=== PATIENT | female | born 1950 | race African-American/Black ===

== ENCOUNTER 2017-01-15 11:26 | Inpatient (IN) ==
[2017-01-15] MEDS ORDERED: ONDANSETRON 4 MG/2 ML VIAL IV PRN (12:22)
[2017-01-15] MEDS ORDERED: PROMETHAZINE 25 MG TABLET PO PRN (12:22)
[2017-01-15] MEDS ORDERED: BISACODYL 5 MG TABLET PO PRN (12:22)
[2017-01-15] MEDS ORDERED: LACTULOSE 20 GM/30 ML UDCUP PO PRN (12:22)
[2017-01-15] MEDS ORDERED: ZALEPLON 5 MG CAPSULE PO PRN (12:22)
[2017-01-15] MEDS ORDERED: ACETAMINOPHEN 325 MG TABLET PO PRN (12:22)
[2017-01-15] MEDS ORDERED: DOCUSATE SODIUM 100 MG CAPSULE PO PRN (12:22)
[2017-01-15] MEDS ORDERED: diphenhydrAMINE CAP 25 MG CAPSULE PO PRN (12:22)
[2017-01-15] MEDS ORDERED: EPOETIN ALFA 2,000 UNIT/1 ML VIAL IV PRN (12:28)
[2017-01-15] MEDS ORDERED: SODIUM CHLORIDE 0.9% 250 ML IV PRN (12:29)
--- NOTE | 2017-01-15 13:51 | Nephrology History & Physical ---
History of Present Illness Chief complaint: Increased BUN and creatinine History of present illness: Ms. Zamora is a 66 year old female who was seen in the outpatient setting for chronic kidney disease. The patient is a prison patient in the [place] she has had strokes in the past and is unable to ambulate or communicate very well. The patient occasionally grounds and mumble some. It is questionable how much she understands. The history is taken from her medical record and from her daughter. The patient's creatinine a few months ago was around 4 mg/dL lab done a week or so ago at the prison revealed a creatinine of greater than 6 mg/dL. The patient had been on a large dose of Lasix this was decreased a few months ago in light of her worsening kidney function however despite this change the patient's kidneys have progressively worsened and she is admitted at this time for dialysis initiation. Review of systems unable be obtained due to patient's medical condition PE: General: in no acute distress Eyes: Pupils are round and reactive, conjunctivae are clear ENT: Nose is clear, O/P is benign Neck: Supple, no thyromegaly Lymphatics: No cervical, supraclavicular or axillary adenopathy Heart: Regular rate and rhythm, 2+ lower extremity edema Lungs: Patient has some wheezing and rhonchi throughout her lung bases worse on the left, chest expansion symmetric Abdomen: Soft, normoactive bowel sounds, no hepatomegaly Musculoskeletal: No joint erythema or effusions or joint asymmetry Skin: Normal turgor, normal hydration, no rash Neuro/Psych: Alert and intermittently cooperative, she would open her mouth when prompted and raise her arm when prompted, she has no insight into her illness Allergies Allergy/AdvReac Type Severity Reaction Status Date / Time No Known Allergies Allergy Verified 01/15/17 12:49 Medical,Surgical,& Family Hx - Medical History Cardio: History of: CHF, Hypertension Neurology: History of: TIA HEENT: History of: HEENT Problems Endocrine: History of: Diabetes Mellitus (IDDM), Diabetes Mellitus (NIDDM) Renal: History of: Renal Failure, Renal Problems Gastrointestinal: History of: GI Problems (PEG) Musculoskeletal: History of: Musculoskeletal Problems - Family History Family History: Reports;: Family Diabetes - Social History Smoking Status: Unknown if ever smoked Frequency of Alcohol Use: None Type of Drug Use: None Assessment and Plan (1) End stage renal disease Status: Acute Assessment and plan: Patient has developed significantly increased creatinine greater than 6 mg/dL and also having problems with fluid retention, we will go ahead and start the patient on dialysis. I spoke to the patient's daughter about this and mentioned consideration towards not placing her mother on dialysis in light of her decreased mental capacity however she preferred to support the patient with dialysis at this time. Current Visit: Yes (2) Anemia Status: Acute Assessment and plan: We will start the patient on EPO on dialysis and check iron stores, will also transfuse her 2 units packed red blood cells on her first dialysis session Current Visit: Yes (3) Hypertension Status: Acute Current Visit: Yes (4) Diabetes mellitus Status: Acute Assessment and plan: We will monitor with a sliding scale of insulin Current Visit: Yes (5) Cerebrovascular disease Status: Acute Current Visit: Yes (6) Volume overload Status: Acute Assessment and plan: We will ultrafilter fluid off as tolerated by the patient Current Visit: Yes
[2017-01-15] MEDS ORDERED: GLUCAGON 1 MG VIAL IM PRN (13:53)
[2017-01-15 14:23] LABS: % Iron Saturation 6.5 % (18-50); Ferritin 137.9 ng/ml (8-252)
[2017-01-15] MEDS ORDERED: HEPARIN 1,000 UNIT/1 ML VIAL ONE (14:40)
--- NOTE | 2017-01-15 15:11 | General Surgery Consult Note ---
Assessment and Plan (1) End stage renal disease Status: Acute Assessment and plan: Impression: End-stage renal disease next Plan: Patient needs hemodialysis catheter placement to begin hemodialysis. She has an anemia and volume overload. Given her low hematocrit feel it is not reasonable to take her to the operating room for sedation. She cannot be given any blood because of the volume overload. I discussed my plans with the patient 's daughters who have power of sports attorney and they have agreed. The plan is for placement of a temporary catheter until she can be dialyzed and is more stable and then we can place a tunneled catheter. I discussed the procedure habits performed with the family. The risks of the procedure including bleeding, infection, damage to surrounding structures, need for further surgery were all discussed in detail and family agrees to proceed. Current Visit: Yes History of Present Illness Chief complaint: Needs dialysis catheter History of present illness: Ms. Zamora is a 66 year old female admitted with end-stage renal disease. Patient is volume overloaded and anemic and needs a hemodialysis catheter placed to begin hemodialysis. She has some dementia. Allergies Allergy/AdvReac Type Severity Reaction Status Date / Time No Known Allergies Allergy Verified 01/15/17 12:49 Medical,Surgical,& Family Hx - Medical History Cardio: History of: CHF, Hypertension Neurology: History of: TIA HEENT: History of: HEENT Problems Endocrine: History of: Diabetes Mellitus (IDDM), Diabetes Mellitus (NIDDM) Renal: History of: Renal Failure, Renal Problems Gastrointestinal: History of: GI Problems (PEG) Musculoskeletal: History of: Musculoskeletal Problems - Family History Family History: Reports;: Family Diabetes - Social History Smoking Status: Unknown if ever smoked Frequency of Alcohol Use: None Type of Drug Use: None Exam - Constitutional General appearance: mild distress - Cardiovascular Cardiovascular exam: Present: RRR Quality Measures - Stroke Symptom Onset Unknown: No Results - Labs Lab Results: I have reviewed the past 24 hour labs
[2017-01-15 15:12] LABS: Hepatitis A Ab IgM Quant 0.03 Index; Hepatitis A Ab IgM Result Negative (Negative); Hepatitis B Core IgM Quant 0.38 Index; Hepatitis B Core IgM Result Negative (Negative); Hepatitis B Surface Ag Quant < 0.10 Index; Hepatitis B Surface Ag Result Negative (Negative); Hepatitis C Virus Ab Quant 0.18 Index; Hepatitis C Virus Ab Result Negative (Negative)
--- NOTE | 2017-01-15 15:14 | Operative Note ---
Date of procedure: 01/15/17 Pre-op diagnosis: End-stage renal disease Post-op diagnosis: same Procedure: Procedure performed: #1 placement of right internal jugular non-tunneled hemodialysis catheter #2 ultrasound-guided venous access Procedure in detail: After informed consent was obtained the patient was placed in supine position in the right neck and chest were prepped and draped in usual sterile fashion. After procedural pause ultrasound was brought over through a sterile sleeve covering ultrasound the right neck revealed a patent and compressible right internal jugular vein. Local anesthetic infiltrated in the skin and subcutaneous tissue. The right internal jugular vein was then accessed using an 18-gauge Seldinger needle under ultrasound guidance on the first attempt. There is nonpulsatile dark red blood. Guidewire inserted without resistance. Small incision was made around the guidewire and the tract was dilated and a 16 cm catheter was placed over over the guidewire using Seldinger technique. Catheter withdrew and flushed easily and was locked with heparinized saline. It was secured in place with 2-0 silk suture. Dressings applied and the patient tolerated the procedure well. Chest x-ray pending. Anesthesia: local Surgeon / Physician: Jose Miller Estimated blood loss: other (Less than 10 cc) Specimens: none sent Condition: stable Disposition: PACU
--- NOTE | 2017-01-15 15:34 | XRay Report ---
Portable chest Date: 01/15/2017 Clinical history: Line placement Comparison: None Technique: Portable AP sitting chest Findings: The heart is minimally to moderately enlarged with calcification in the aortic knob. Diffuse parenchymal findings especially at the left lung base with small left pleural effusion. Insertion of right IJ double lumen venous dialysis catheter with tip in right atrium. No evidence of pneumothorax. Unremarkable mediastinum with degenerative changes. Impression: Satisfactory insertion of right IJ venous dialysis catheter with tip in right atrium. No pneumothorax. Cardiomegaly with mild CHF and small left pleural effusion. PROCEDURE INTERPRETED AT [facility] DEPARTMENT OF RADIOLOGY Final Report Signed by: Dr. Brittney Hanley
[2017-01-15] MEDS ORDERED: FUROSEMIDE 40 MG/4 ML VIAL IV SCH (16:00)
[2017-01-15] MEDS ORDERED: HEPARIN 10,000 UNIT/10 ML VIAL IV SCH (16:30)
[2017-01-15] MEDS ORDERED: EPOETIN ALFA 10,000 UNIT/1 ML VIAL IV SCH (16:30)
[2017-01-15] MEDS: INSULIN REGULAR 100 UNIT/ML SUBCUT SCH ×2 (18:19→20:06)
[2017-01-16] MEDS: DEXTROSE 50% 25 GM/50 ML VIAL IV PRN (02:56)
[2017-01-16] MEDS ORDERED: DEXTROSE 50% 25 GM/50 ML VIAL IV ONE (03:36)
[2017-01-16] MEDS: DEXTROSE 5% NACL 0.45% 1,000 ML IV SCH (03:56)
[2017-01-16 04:08] LABS: Basophils % 0.1 % (0.0-0.8); Eosinophils % 0.5 % (0.00-10.9); Hematocrit 22.4 VOL% (35.7-47.0); Hemoglobin 7.5 GM/DL (12.0-16.0); Immature Granulocytes % 0.6 %; Immature Granulocytes Absolute 0.05 #; Lymphocytes # 1.3 10*3/uL (1.4-4.0); Lymphocytes % 14.9 % (21.3-54.2); Mean Corpuscular HGB Conc 33.5 GM/DL (32-36); Mean Corpuscular Hemoglobin 26 PG (27-34); Mean Corpuscular Volume 78.3 FL (87-102); Mean Platelet Volume 11.7 FL (9.6-12.0); Monocytes # 0.6 10*3/uL (0.11-0.8); NRBC # 0.03 10*3/uL; Neutrophils # 6.6 10*3/uL (1.4-7.4); Neutrophils % 76.9 % (38.7-73.9); Platelet Count 208 T/CUMM (130-400); Red Blood Count 2.86 MC/CUMM (3.8-5.5); Red Cell Distribution Width 18.6 % (9.3-17.3); White Blood Count 8.5 T/CUMM (4-12)
[2017-01-16 04:29] LABS: Calcium 7.3 MG/DL (8.5-10.1); Osmolality,Calculated 292.4 MOS/KG (273-304); Potassium 4.3 MMOL/L (3.5-5.1)
--- NOTE | 2017-01-16 07:31 | Nephrology Progress Note ---
Nephrology - PN: Subj Interval history: Patient is more awake and interactive this morning she did say hello and answer some questions appropriately in a one-word fashion. Physical exam general the patient is chronically ill-appearing, heart is regular rate and rhythm, she has 2+ lower extremity edema into her thighs, lungs reveal some wheezes throughout, abdomen is soft with positive bowel sounds Assessment/plan 1. End-stage renal disease-we will plan on hemodialysis today 2. Anemia-patient's hematocrits 22% this is increased appropriately with a transfusion of 1 unit of packed red blood cells, plan is to give her another unit of PRBCs on dialysis today 3. Diabetes mellitus 4. Volume overload-this patient continues to have some pulmonary wheezes, will plan on removing 3 L or more today on dialysis as tolerated Exam (PN)-Nephrology - Vital Signs Vital signs: Period Temp Pulse Resp BP Sys/Chung Pulse Ox Last 24 Hr 97.4 F-98.5 F 66-68 16-20 132-210/71-110 93-97 - Lab 01/16/17 03:55 01/16/17 03:55 Most recent lab results Calcium 7.3 MG/DL (8.5-10.1) L 01/16/17 03:55 Assessment and Plan (1) End stage renal disease Status: Acute Assessment and plan: Patient has developed significantly increased creatinine greater than 6 mg/dL and also having problems with fluid retention, we will go ahead and start the patient on dialysis. I spoke to the patient's daughter about this and mentioned consideration towards not placing her mother on dialysis in light of her decreased mental capacity however she preferred to support the patient with dialysis at this time. Current Visit: Yes (2) Anemia Status: Acute Assessment and plan: We will start the patient on EPO on dialysis and check iron stores, will also transfuse her 2 units packed red blood cells on her first dialysis session Current Visit: Yes (3) Hypertension Status: Acute Current Visit: Yes (4) Diabetes mellitus Status: Acute Assessment and plan: We will monitor with a sliding scale of insulin Current Visit: Yes (5) Cerebrovascular disease Status: Acute Current Visit: Yes (6) Volume overload Status: Acute Assessment and plan: We will ultrafilter fluid off as tolerated by the patient Current Visit: Yes
[2017-01-16] MEDS: PANTOPRAZOLE 40 MG TABLET PO SCH (09:00)
[2017-01-16] MEDS: INSULIN REGULAR 100 UNIT/ML SUBCUT SCH ×4 (09:00→22:44)
[2017-01-16] MEDS: cloNIDine 0.1 MG TABLET PO PRN (11:48)
[2017-01-16] MEDS ORDERED: ALBUTEROL/IPRATROPIUM 3 ML NEB RESP TX PRN (14:29)
[2017-01-16] MEDS ORDERED: ACETAMINOPHEN 325 MG TABLET PO PRN (14:32)
[2017-01-16] MEDS ORDERED: clonazePAM 0.5 MG TABLET PO PRN (14:37)
[2017-01-16] MEDS: ISOSORBIDE DINITRATE 20 MG TABLET PO SCH (15:24)
[2017-01-16] MEDS: hydrALAZINE 25 MG TABLET PO SCH (15:24)
[2017-01-16] MEDS: CARVEDILOL 3.125 MG TABLET PO SCH (15:25)
[2017-01-17] MEDS: FERROUS SULFATE 300 MG/5 ML UDCUP PO SCH ×2 (00:50→08:27)
[2017-01-17] MEDS: SERTRALINE 50 MG TABLET PO SCH (00:50)
[2017-01-17] MEDS: hydrALAZINE 25 MG TABLET PO SCH ×3 (00:50→15:37)
[2017-01-17] MEDS: CARVEDILOL 3.125 MG TABLET PO SCH ×2 (00:50→08:27)
[2017-01-17] MEDS: INSULIN GLARGINE 100 UNIT/ML SUBCUT SCH (00:51)
[2017-01-17] MEDS: guaiFENesin/DM ER 600-30 MG TABLET PO PRN (00:51)
[2017-01-17] MEDS: ISOSORBIDE DINITRATE 20 MG TABLET PO SCH ×3 (00:51→15:37)
[2017-01-17] MEDS: DEXTROSE 5% NACL 0.45% 1,000 ML IV SCH (06:25)
[2017-01-17 08:07] LABS: Calcium 7.4 MG/DL (8.5-10.1); Magnesium 3.2 MG/DL (1.8-2.4); Osmolality,Calculated 285.1 MOS/KG (273-304); Phosphorous 2.6 MG/DL (2.5-4.9); Potassium 4.2 MMOL/L (3.5-5.1); Prealbumin 16.9 MG/DL (20-40)
[2017-01-17] MEDS: INSULIN REGULAR 100 UNIT/ML SUBCUT SCH ×3 (08:27→18:13)
[2017-01-17] MEDS: ONDANSETRON 4 MG TABLET PO SCH (08:27)
[2017-01-17] MEDS: PANTOPRAZOLE 40 MG TABLET PO SCH (08:27)
--- NOTE | 2017-01-17 08:46 | Nephrology Progress Note ---
Nephrology - PN: Subj Interval history: This patient is awake and alert today, she did say hello but would not expand much on questions after that. Review of systems GI-the nurse reports the patient had 2 large bowel movements which were very dark in color. Physical exam general the patient is chronically ill-appearing, she has 2+ pretibial edema, she still has some crackles worse on the right than the left, neuro-the patient is awake and alert she said hello, today she is repeatedly tapping herself on her head, this is not unusual behavior for the patient she has done this in the past when I seen her on previous hospitalizations. Assessment/plan 1. End-stage renal disease-we will continue hemodialysis support 2. Anemia-with the patient's presentation hematocrit of 22% and history of black stools, and asked GI to see her in consultation 3. Diabetes mellitus 4. Volume overload-I am going to dialyze the patient today and will also dialyze her tomorrow for further fluid removal. Exam (PN)-Nephrology - Vital Signs Vital signs: Period Temp Pulse Resp BP Sys/Chung Pulse Ox Last 24 Hr 97.8 F-98.3 F 67-69 18-20 151-167/70-86 96-99 - Lab 01/16/17 03:55 01/17/17 06:00 Most recent lab results Calcium 7.4 MG/DL (8.5-10.1) L 01/17/17 06:00 Phosphorus 2.6 MG/DL (2.5-4.9) 01/17/17 06:00 Magnesium 3.2 MG/DL (1.8-2.4) H 01/17/17 06:00 Assessment and Plan (1) End stage renal disease Status: Acute Assessment and plan: Patient has developed significantly increased creatinine greater than 6 mg/dL and also having problems with fluid retention, we will go ahead and start the patient on dialysis. I spoke to the patient's daughter about this and mentioned consideration towards not placing her mother on dialysis in light of her decreased mental capacity however she preferred to support the patient with dialysis at this time. Current Visit: Yes (2) Anemia Status: Acute Assessment and plan: We will start the patient on EPO on dialysis and check iron stores, will also transfuse her 2 units packed red blood cells on her first dialysis session Current Visit: Yes (3) Hypertension Status: Acute Current Visit: Yes (4) Diabetes mellitus Status: Acute Assessment and plan: We will monitor with a sliding scale of insulin Current Visit: Yes (5) Cerebrovascular disease Status: Acute Current Visit: Yes (6) Volume overload Status: Acute Assessment and plan: We will ultrafilter fluid off as tolerated by the patient Current Visit: Yes
[2017-01-17 10:05] LABS: Basophils % 0.1 % (0.0-0.8); Eosinophils % 0.4 % (0.00-10.9); Hematocrit 25.7 VOL% (35.7-47.0); Hemoglobin 8.7 GM/DL (12.0-16.0); Immature Granulocytes % 0.5 %; Immature Granulocytes Absolute 0.05 #; Lymphocytes # 1.4 10*3/uL (1.4-4.0); Mean Corpuscular HGB Conc 33.9 GM/DL (32-36); Mean Corpuscular Hemoglobin 27 PG (27-34); Mean Corpuscular Volume 79.6 FL (87-102); Mean Platelet Volume 10.9 FL (9.6-12.0); Monocytes # 0.6 10*3/uL (0.11-0.8); Monocytes % 6.5 % (1.7-12.7); NRBC # 0.02 10*3/uL; Neutrophils # 7.3 10*3/uL (1.4-7.4); Neutrophils % 77.5 % (38.7-73.9); Platelet Count 153 T/CUMM (130-400); Red Blood Count 3.23 MC/CUMM (3.8-5.5); White Blood Count 9.4 T/CUMM (4-12)
--- NOTE | 2017-01-17 10:57 | Gastrointestinal Consult Note ---
<Kaia Mcdermott Geeta - Last Filed: 01/17/17 10:53> Assessment and Plan (1) Anemia Status: Acute Assessment and plan: 01/17-admitting hemoglobin at 7.5 with reports of melena stools. Has received 2 units packed red blood cells with hemoglobin of 8.7. Uncertain as to prior history of GI bleeding. Obtain stools for occult blood. Uncertain as to prior endoscopy. Plan an addendum to follow by Dr. Gracia. Current Visit: Yes History of Present Illness Chief complaint: Melena History of present illness: Ms. Zamora is a 66 year old female who was admitted to the hospital after findings of increased BUN and creatinine in the outpatient setting. Patient resides in a [facility] and has a history of CVA in the past with inability to communicate very well verbally. She also has a prior history of CHF, hypertension, diabetes mellitus. Patient was found several months ago to have creatinine of 4 however as recent her creatinine has increased to 6 mg/dl. she is followed by Dr. Agustin and at this time was felt that her kidney disease is progressing and she has now had dialysis initiated after having hemodialysis catheter placed 2 days ago. Patient was noted on today to have 2 large bowel movements which were noted to be very dark in color. On yesterday, her hemoglobin was noted to be 7.5. She has been transfused 2 units of packed red blood cells and hemoglobin is now up to 8.7 at this time. Iron studies have been done with a noted iron of 18, TIBC 275, saturation 6.5, and ferritin 137.9. She is noted to not take any anticoagulants prior to admission however she is noted to be on oral iron supplements. She is also noted to take Nexium. Stool for occult bloods are still pending at this time. Patient is unable to answer questions other than with a simple yes or head nod therefore uncertain as to the validity of her answers. She does not complain of nausea or vomiting. She states she does have abdominal pain however no tenderness found on exam. Patient is noted to have PEG tube however uncertain as to prior endoscopy are any details regarding placement of this. Home Medications Medication Instructions Recorded Confirmed Type Acetaminophen Tab [Tylenol Tab] 1,000 mg PO Q4H PRN 01/16/17 01/16/17 History Albuterol/Ipratropium Neb [Duoneb] 3 ml RESP TX RT Q4H PRN 05/10/17 05/10/17 History Atorvastatin [Lipitor] 10 mg PO BEDTIME 01/16/17 01/16/17 History Carvedilol [Coreg] 3.125 mg PO BID 01/16/17 01/16/17 History Esomeprazole Magnesium [Nexium] 40 mg PO DAILY 01/16/17 01/16/17 History Ferrous Sulfate 220 mg PO BID 01/16/17 01/16/17 History Furosemide Tab [Lasix Tab] 20 mg PO DAILY 01/16/17 01/16/17 History Insulin Glargine [Lantus] 10 unit SUBCUT BEDTIME 01/16/17 01/16/17 History Isosorbide Dinitrate 20 mg PO TID 01/16/17 01/16/17 History Ondansetron Tab [Zofran Tab] 4 mg PO DAILY 01/16/17 01/16/17 History Sertraline [Zoloft] 50 mg PO BEDTIME 01/16/17 01/16/17 History clonazePAM TAB [KlonoPIN] 0.5 mg PO Q8H PRN 01/16/17 01/16/17 History hydrALAZINE TAB [Apresoline Tab] 25 mg PO TID 01/16/17 01/16/17 History Allergies Allergy/AdvReac Type Severity Reaction Status Date / Time No Known Allergies Allergy Verified 01/15/17 12:49 Medical,Surgical,& Family Hx - Medical History Cardio: History of: CHF, Hypertension Neurology: History of: TIA HEENT: History of: HEENT Problems Endocrine: History of: Diabetes Mellitus (IDDM), Diabetes Mellitus (NIDDM) Renal: History of: Renal Failure, Renal Problems Gastrointestinal: History of: GI Problems (PEG) Musculoskeletal: History of: Musculoskeletal Problems - Family History Family History: Reports;: Family Diabetes - Social History Smoking Status: Unknown if ever smoked Frequency of Alcohol Use: None Type of Drug Use: None ROS unobtainable: due to mental status Exam - Constitutional Vitals: Period Temp Pulse Resp BP Sys/Chung Pulse Ox Last 24 Hr 97.8 F-98.3 F 67-69 18-20 151-174/70-86 96-99 General appearance: normal weight, no acute distress - Head Head exam: Present: normal inspection, normocephalic - Eye Eye exam: Present: other (Lids and conjunctive are unremarkable). Absent: scleral icterus - ENT ENT exam: Present: normal exam, normal oropharynx - Neck Neck exam: Present: normal inspection - Respiratory Respiratory exam: Present: clear to auscultation bilaterally. Absent: rales, rhonchi, wheezes - Cardiovascular Cardiovascular exam: Present: regular rate and rhythm. Absent: diastolic murmur , JVD, systolic murmur - GI/Abdominal GI/Abdominal exam: Present: normal bowel sounds, soft. Absent: ascites, distended, mass, organomegaly, tenderness - Extremities Exam Extremities exam: Present: normal inspection, full ROM - Back Exam Back exam: Present: normal inspection - Neurological Exam Neurological exam: Present: alert, altered - Psychiatric Psychiatric exam: Present: flat affect - Skin Skin exam: Present: normal color, warm, dry Results - Labs CBC & BMP: 01/17/17 10:00 01/17/17 06:00 Lab Results: I have reviewed the past 24 hour labs Quality Measures - Stroke Symptom Onset Unknown: No <Edgar Gracia - Last Filed: 01/17/17 11:32> History of Present Illness Chief complaint: 3030 History of present illness: Ms. Zamora is a 66 year old female Exam - Constitutional Vitals: Period Temp Pulse Resp BP Sys/Chung Pulse Ox Last 24 Hr 97.8 F-98.3 F 67-69 18-20 151-174/70-86 96-99 Results - Labs CBC & BMP: 01/17/17 10:00 01/17/17 06:00
--- NOTE | 2017-01-17 12:28 | Event Note ---
Patient seen in the dialysis unit. She continues to have visually had her head. She nods yes when asked if his itching. Otherwise she appears to be in no apparent pain or her discomfort. Central line with appropriate dressing and is currently being used for dialysis. No evidence of infection surrounding her active bleeding. Right upper extremities without edema. Assessment and plan: The patient is planned to continue dialysis. To decrease risk of line infection, recommend transitioning to a tunneled hemodialysis catheter as soon as can safely be performed. H&H are improved after transfusion at 8.7/25.7. He has was discussed with Dr. Agustin. At this time we will plan to remove the central line tomorrow and place a tunneled hemodialysis catheter pending no decompensation overnight. This plan was discussed with the family when the initial central line was placed, but no family is at bedside right now the patient is in the dialysis unit.
--- NOTE | 2017-01-17 18:57 | EKG Report ---
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
[2017-01-18] MEDS: INSULIN GLARGINE 100 UNIT/ML SUBCUT SCH ×2 (00:55→21:19)
[2017-01-18] MEDS: INSULIN REGULAR 100 UNIT/ML SUBCUT SCH ×5 (00:56→21:18)
[2017-01-18] MEDS: FERROUS SULFATE 300 MG/5 ML UDCUP PO SCH ×3 (01:17→20:33)
[2017-01-18] MEDS: guaiFENesin/DM ER 600-30 MG TABLET PO PRN (01:20)
[2017-01-18] MEDS: cloNIDine 0.1 MG TABLET PO PRN (01:20)
[2017-01-18] MEDS: ISOSORBIDE DINITRATE 20 MG TABLET PO SCH ×4 (01:20→20:34)
[2017-01-18] MEDS: CARVEDILOL 3.125 MG TABLET PO SCH ×3 (01:20→20:40)
[2017-01-18] MEDS: hydrALAZINE 25 MG TABLET PO SCH ×4 (01:26→20:40)
[2017-01-18] MEDS: SERTRALINE 50 MG TABLET PO SCH ×2 (01:28→20:40)
[2017-01-18] MEDS: DEXTROSE 5% NACL 0.45% 1,000 ML IV SCH (05:17)
[2017-01-18 07:28] LABS: Basophils % 0.2 % (0.0-0.8); Eosinophils # 0.1 10*3/uL (0.0-0.87); Eosinophils % 0.9 % (0.00-10.9); Hematocrit 26.9 VOL% (35.7-47.0); Hemoglobin 8.7 GM/DL (12.0-16.0); Immature Granulocytes % 0.3 %; Immature Granulocytes Absolute 0.03 #; Lymphocytes # 2.2 10*3/uL (1.4-4.0); Lymphocytes % 24.9 % (21.3-54.2); Mean Corpuscular HGB Conc 32.3 GM/DL (32-36); Mean Corpuscular Hemoglobin 26 PG (27-34); Mean Corpuscular Volume 80.5 FL (87-102); Mean Platelet Volume 11.9 FL (9.6-12.0); Monocytes # 0.8 10*3/uL (0.11-0.8); Monocytes % 9.3 % (1.7-12.7); NRBC # 0.03 10*3/uL; Neutrophils # 5.8 10*3/uL (1.4-7.4); Neutrophils % 64.4 % (38.7-73.9); Platelet Count 176 T/CUMM (130-400); Red Blood Count 3.34 MC/CUMM (3.8-5.5); Red Cell Distribution Width 18.4 % (9.3-17.3)
[2017-01-18] MEDS: SODIUM CHLORIDE 0.9% 250 ML IV SCH ×2 (07:36→20:39)
[2017-01-18] MEDS ORDERED: LIDOCAINE 1% 5 ML VIAL ONE (07:40)
[2017-01-18] MEDS ORDERED: PROPOFOL 200 MG/20 ML VIAL IV ONE (07:40)
[2017-01-18] MEDS ORDERED: hydrALAZINE 20 MG/1 ML VIAL ONE (07:40)
--- NOTE | 2017-01-18 08:20 | Operative Note ---
Date of procedure: 01/18/17 Pre-op diagnosis: End-stage renal disease Post-op diagnosis: same Procedure: Procedure performed: #1 placement of right internal jugular tunneled hemodialysis catheter #2 removal of right internal jugular non-tunneled hemodialysis catheter Procedure in detail: After informed consent was obtained, patient was taken operating suite and laid supine on the operating table. After monitored anesthesia was initiated bilateral neck and chest were prepped and draped in usual sterile fashion including the existing non-tunneled catheter. After procedural pause local anesthetic infiltrated in the skin and subcutaneous tissue around the catheter exit site and along the right chest wall. Small incision was made in the right chest wall and adjacent the existing catheter and a new 23 cm cuffed hemodialysis catheter was tunneled from the chest wall incision up to the base the right neck. Next a Glidewire was inserted through the existing catheter and fluoroscopy demonstrated a guidewire to be exiting the distal tip of the catheter and going down into the inferior vena cava. The non-tunneled catheter was then removed leaving the Glidewire in place. Dilator and sheath were placed over the Glidewire and advanced under fluoroscopic guidance without any significant resistance using Seldinger technique. The dilator and Glidewire were removed leaving the sheath in place. The catheter inserted through the sheath and sheath peeled away leaving the catheter tip near the junction of the right atrium and SVC. The catheter withdrew and flushed easily and was locked with heparinized saline. It was secured in place with 2-0 nylon suture. Incisions closed with 2-0 nylon suture. Sterile dressings applied. Patient was taken to recovery room in stable condition. All lap and needle counts correct at the end of the case Anesthesia: MAC, local Surgeon / Physician: Jose Miller Estimated blood loss: other (Less than 10 cc) Specimens: none sent Condition: stable Disposition: PACU Results - Labs CBC & BMP: 01/18/17 06:17 01/17/17 06:00 Discharge Plan - Discharge Medications No Action Carvedilol [Coreg] 3.125 mg PO BID clonazePAM TAB [KlonoPIN] 0.5 mg PO Q8H PRN PRN Reason: Anxiety Acetaminophen Tab [Tylenol Tab] 1,000 mg PO Q4H PRN PRN Reason: Pain Esomeprazole Magnesium [Nexium] 40 mg PO DAILY Ferrous Sulfate 220 mg PO BID Isosorbide Dinitrate 20 mg PO TID Sertraline [Zoloft] 50 mg PO BEDTIME Atorvastatin [Lipitor] 10 mg PO BEDTIME Insulin Glargine [Lantus] 10 unit SUBCUT BEDTIME Furosemide Tab [Lasix Tab] 20 mg PO DAILY Albuterol/Ipratropium Neb [Duoneb] 3 ml RESP TX RT Q4H PRN PRN Reason: Shortness Of Breath hydrALAZINE TAB [Apresoline Tab] 25 mg PO TID Ondansetron Tab [Zofran Tab] 4 mg PO DAILY - Follow Up or Referral - Forms/Instructions
[2017-01-18 08:27] LABS: Calcium 7.6 MG/DL (8.5-10.1); Potassium 3.6 MMOL/L (3.5-5.1)
[2017-01-18] MEDS: PANTOPRAZOLE 40 MG TABLET PO SCH (08:56)
[2017-01-18] MEDS: ONDANSETRON 4 MG TABLET PO SCH (08:56)
--- NOTE | 2017-01-18 08:58 | Interventional Radiology Rpt ---
Exam: IR fluoro guide cv cath Date: 01/18/2017 12:00 AM Comparison: None Indication: Dialysis catheter placement Technique:[Fluoroscopy time of 26 seconds documented. 2 films submitted for review.] Findings: Satisfactory insertion of right IJ dialysis catheter with tips at junction of SVC and right atrium. Impression: Satisfactory insertion of right IJ venous dialysis catheter. PROCEDURE INTERPRETED AT [facility] DEPARTMENT OF RADIOLOGY Final Report Signed by: Dr. Brittney Hanley
--- NOTE | 2017-01-18 09:39 | XRay Report ---
Portable chest Date: 01/18/2017 Clinical history: Dialysis catheter placement Comparison: 01/15/2017 Technique: Portable AP sitting chest Findings: Stable cardiomegaly with calcification in the aortic knob. Removal of the previously noted right IJ venous dialysis catheter. New right IJV dialysis catheter inserted with tips at junction of SVC and right atrium. No pneumothorax. Persistent diffuse parenchymal findings especially at the lung bases with small left pleural effusion. Stable mediastinum and osseous structures. Impression: Satisfactory exchange of right IJ venous dialysis catheter with no pneumothorax. Persistent cardiomegaly with mild CHF and small left pleural effusion. PROCEDURE INTERPRETED AT [facility] DEPARTMENT OF RADIOLOGY Final Report Signed by: Dr. Brittney Hanley
--- NOTE | 2017-01-18 11:03 | Nephrology Progress Note ---
Nephrology - PN: Subj Interval history: Patient is awake and coherent and responding in a one-word fashion appropriately to interaction. Physical exam general the patient's in no acute distress, heart is regular rate and rhythm, she has 2+ pretibial edema, lungs reveal some wheezes and crackles throughout but improved from presentation, abdomen is soft with positive bowel sounds Assessment/plan 1. End-stage renal disease-new start on hemodialysis will plan on dialyzing the patient today for volume, her next dialysis will be Saturday. 2. Anemia-patient presented with hematocrit of 22% she reportedly had some very dark stools we have asked GI to see her in consultation and it sounds like they may do an EGD at some point. I am going to recheck a hematocrit on hemodialysis for stability. 3. Dementia 4. Diabetes mellitus is controlled 5. Volume overload-we will continue to vigorously ultrafilter the patient on hemodialysis. Exam (PN)-Nephrology - Vital Signs Vital signs: Period Temp Pulse Resp BP Sys/Chung Pulse Ox Last 24 Hr 97 F-991 F 57-72 16-18 142-161/65-86 93-100 - Lab 01/18/17 06:17 01/18/17 06:17 Most recent lab results Calcium 7.6 MG/DL (8.5-10.1) L 01/18/17 06:17 Phosphorus 2.6 MG/DL (2.5-4.9) 01/17/17 06:00 Magnesium 3.2 MG/DL (1.8-2.4) H 01/17/17 06:00 Assessment and Plan (1) End stage renal disease Status: Acute Assessment and plan: Patient has developed significantly increased creatinine greater than 6 mg/dL and also having problems with fluid retention, we will go ahead and start the patient on dialysis. I spoke to the patient's daughter about this and mentioned consideration towards not placing her mother on dialysis in light of her decreased mental capacity however she preferred to support the patient with dialysis at this time. Current Visit: Yes (2) Anemia Status: Acute Assessment and plan: We will start the patient on EPO on dialysis and check iron stores, will also transfuse her 2 units packed red blood cells on her first dialysis session Current Visit: Yes (3) Hypertension Status: Acute Current Visit: Yes (4) Diabetes mellitus Status: Acute Assessment and plan: We will monitor with a sliding scale of insulin Current Visit: Yes (5) Cerebrovascular disease Status: Acute Current Visit: Yes (6) Volume overload Status: Acute Assessment and plan: We will ultrafilter fluid off as tolerated by the patient Current Visit: Yes
--- NOTE | 2017-01-18 11:24 | Dialysis Note ---
Dialysis Note - Dialysis Note .: Is seen during her first hemodialysis. She is tolerating the initial dialysis fairly well. She is awake but not communicative. Her right neck catheter exits the right chest and the dressings are dry. Flow by way of the catheter is excellent.
--- NOTE | 2017-01-18 11:40 | Gastrointestinal Progress Note ---
<YoeliceoKaia Geeta - Last Filed: 01/18/17 11:38> Assessment and Plan (1) Anemia Status: Acute Assessment and plan: 01/18-hemoglobin stable at 8.7. No reports of overt bleeding. EGD postponed due to dialysis catheter placement. Monitor hemoglobin and will consider EGD if necessary on Saturday if patient remains stable unless overt bleeding or patient begins to drop her hemoglobin over the weekend. Plan an addendum to follow by Dr. Gracia. 01/17-admitting hemoglobin at 7.5 with reports of melena stools. Has received 2 units packed red blood cells with hemoglobin of 8.7. Uncertain as to prior history of GI bleeding. Obtain stools for occult blood. Uncertain as to prior endoscopy. Plan an addendum to follow by Dr. Gracia. Current Visit: Yes Gastroenterology - PN: Subj Interval history: CC: Melena, anemia Patient is seen following dialysis catheter placement this morning. She does not open her eyes at this time to verbal stimuli. She is for dialysis later this morning. Abdomen is soft, nontender. There are no reports of overt bleeding at this time. Hemoglobin is holding at 8.7 at present. EGD postponed today due to dialysis catheter placement. We will continue to monitor hemoglobin and signs of overt bleeding over the weekend and proceed with EGD if necessary on Saturday if patient remains stable. ROS: Denies shortness of breath or chest pain Exam (Progress Note) - Constitutional Vitals: Period Temp Pulse Resp BP Sys/Chung Pulse Ox Last 24 Hr 97 F-991 F 57-72 16-18 142-161/65-86 93-100 General appearance: normal weight, no acute distress - Head Head exam: Present: normal inspection, normocephalic - Eye Eye exam: Present: other (Lids and conjunctive are unremarkable). Absent: scleral icterus - ENT ENT exam: Present: normal exam, normal oropharynx - Neck Neck exam: Present: normal inspection - Respiratory Respiratory exam: Present: clear to auscultation bilaterally. Absent: rales, rhonchi, wheezes - Cardiovascular Cardiovascular exam: Present: regular rate and rhythm. Absent: diastolic murmur , JVD, systolic murmur - GI/Abdominal GI/Abdominal exam: Present: normal bowel sounds, soft. Absent: ascites, distended, mass, organomegaly, tenderness - Extremities Exam Extremities exam: Present: normal inspection - Back Exam Back exam: Present: normal inspection - Neurological Exam Neurological exam: Present: altered - Psychiatric Psychiatric exam: Present: other - Skin Skin exam: Present: normal color, warm, dry Results - Labs CBC & BMP: 01/18/17 06:17 01/18/17 06:17 Lab Results: I have reviewed the past 24 hour labs <Edgar Gracia - Last Filed: 01/18/17 14:03> Exam (Progress Note) - Constitutional Vitals: Period Temp Pulse Resp BP Sys/Chung Pulse Ox Last 24 Hr 97 F-991 F 57-72 16-18 142-161/65-86 93-100 Results - Labs CBC & BMP: 01/18/17 06:17 01/18/17 06:17
--- NOTE | 2017-01-18 12:05 | Anesthesia Post-Op ---
Anesthesia Post OP - Post Ansesthetic Evaluation Patient seen in post op: Yes Resp: within normal limits CV: within normal limits Mental: within normal limits Temp: within normal limits Gdnr-[id number]: within normal limits Nausea and Vomiting: within normal limits Pain: within normal limits
[2017-01-18] MEDS: DEXTROSE 50% 25 GM/50 ML VIAL IV PRN (18:46)
[2017-01-19] MEDS: DEXTROSE 5% NACL 0.45% 1,000 ML IV SCH (02:33)
[2017-01-19] MEDS: ONDANSETRON 4 MG TABLET PO SCH (08:10)
[2017-01-19] MEDS: ISOSORBIDE DINITRATE 20 MG TABLET PO SCH ×3 (08:10→20:13)
[2017-01-19] MEDS: hydrALAZINE 25 MG TABLET PO SCH ×3 (08:10→20:13)
[2017-01-19] MEDS: FERROUS SULFATE 300 MG/5 ML UDCUP PO SCH ×2 (08:10→20:13)
[2017-01-19] MEDS: CARVEDILOL 3.125 MG TABLET PO SCH ×2 (08:10→20:13)
[2017-01-19] MEDS: PANTOPRAZOLE 40 MG TABLET PO SCH (08:11)
[2017-01-19 08:36] LABS: Basophils % 0.2 % (0.0-0.8); Eosinophils # 0.1 10*3/uL (0.0-0.87); Eosinophils % 1.2 % (0.00-10.9); Hematocrit 31.7 VOL% (35.7-47.0); Hemoglobin 10.1 GM/DL (12.0-16.0); Immature Granulocytes % 0.3 %; Immature Granulocytes Absolute 0.03 #; Lymphocytes # 1.5 10*3/uL (1.4-4.0); Lymphocytes % 15.7 % (21.3-54.2); Mean Corpuscular HGB Conc 31.9 GM/DL (32-36); Mean Corpuscular Hemoglobin 26 PG (27-34); Mean Corpuscular Volume 82.8 FL (87-102); Mean Platelet Volume 11.1 FL (9.6-12.0); Monocytes # 0.7 10*3/uL (0.11-0.8); Monocytes % 7.7 % (1.7-12.7); NRBC # 0.13 10*3/uL; Neutrophils # 7.1 10*3/uL (1.4-7.4); Neutrophils % 74.9 % (38.7-73.9); Platelet Count 173 T/CUMM (130-400); Red Blood Count 3.83 MC/CUMM (3.8-5.5); Red Cell Distribution Width 18.5 % (9.3-17.3); White Blood Count 9.4 T/CUMM (4-12)
[2017-01-19] MEDS: INSULIN REGULAR 100 UNIT/ML SUBCUT SCH ×4 (08:58→20:13)
[2017-01-19] MEDS: SODIUM CHLORIDE 0.9% 250 ML IV SCH ×2 (10:03→21:11)
--- NOTE | 2017-01-19 17:41 | Nephrology Progress Note ---
Nephrology - PN: Subj Interval history: The patient is resting comfortably no acute changes. Tolerated dialysis on yesterday. Exam (PN)-Nephrology - Vital Signs Vital signs: Period Temp Pulse Resp BP Sys/Chung Pulse Ox Last 24 Hr 97.1 F-99.0 F 66-74 15-20 135-156/56-74 95-100 - General Appearance General appearance: well-developed Neck: supple Respiratory: clear Cardiology: regular rate, regular rhythm Gastrointestinal: normoactive bowel sounds, no tenderness Neurologic: alert and oriented x3 Musculoskeletal: no clubbing Psychiatric: mood/affect appropriate - Lab 01/19/17 08:26 01/18/17 06:17 Most recent lab results Calcium 7.6 MG/DL (8.5-10.1) L 01/18/17 06:17 Phosphorus 2.6 MG/DL (2.5-4.9) 01/17/17 06:00 Magnesium 3.2 MG/DL (1.8-2.4) H 01/17/17 06:00 Assessment and Plan (1) End stage renal disease Status: Chronic Current Visit: Yes (2) Anemia Status: Chronic Current Visit: Yes (3) Hypertension Status: Chronic Current Visit: Yes Qualifiers: Hypertension type: essential hypertension Qualified Code(s): I10 - Essential (primary) hypertension (4) Diabetes mellitus Status: Chronic Current Visit: Yes Qualifiers: Diabetes mellitus type: other specified (including LUCIO) Chronic kidney disease stage: on chronic dialysis
[2017-01-19] MEDS: INSULIN GLARGINE 100 UNIT/ML SUBCUT SCH (20:12)
[2017-01-19] MEDS: SERTRALINE 50 MG TABLET PO SCH (20:14)
[2017-01-20] MEDS: DEXTROSE 5% NACL 0.45% 1,000 ML IV SCH (02:53)
[2017-01-20] MEDS: ONDANSETRON 4 MG TABLET PO SCH (08:19)
[2017-01-20] MEDS: hydrALAZINE 25 MG TABLET PO SCH ×3 (08:19→21:58)
[2017-01-20] MEDS: ISOSORBIDE DINITRATE 20 MG TABLET PO SCH ×3 (08:19→21:58)
[2017-01-20] MEDS: CARVEDILOL 3.125 MG TABLET PO SCH ×2 (08:19→21:59)
[2017-01-20] MEDS: FERROUS SULFATE 300 MG/5 ML UDCUP PO SCH ×2 (08:20→21:58)
[2017-01-20] MEDS: PANTOPRAZOLE 40 MG TABLET PO SCH (08:20)
[2017-01-20] MEDS: INSULIN REGULAR 100 UNIT/ML SUBCUT SCH ×4 (08:41→21:59)
[2017-01-20] MEDS: SODIUM CHLORIDE 0.9% 250 ML IV SCH (10:15)
--- NOTE | 2017-01-20 14:26 | Nephrology Progress Note ---
Nephrology - PN: Subj Interval history: Patient is resting comfortably no acute changes. Plan for hemodialysis on tomorrow. Exam (PN)-Nephrology - Vital Signs Vital signs: Period Temp Pulse Resp BP Sys/Chung Pulse Ox Last 24 Hr 97.7 F-99.2 F 69-79 16-20 129-174/60-85 95-100 - General Appearance General appearance: well-developed, well-nourished EENT: ATNC Neck: supple Respiratory: clear Cardiology: regular rate, regular rhythm Gastrointestinal: normoactive bowel sounds, no tenderness Musculoskeletal: no clubbing Psychiatric: mood/affect appropriate - Lab 01/19/17 08:26 01/18/17 06:17 Most recent lab results Calcium 7.6 MG/DL (8.5-10.1) L 01/18/17 06:17 Phosphorus 2.6 MG/DL (2.5-4.9) 01/17/17 06:00 Magnesium 3.2 MG/DL (1.8-2.4) H 01/17/17 06:00 Assessment and Plan (1) End stage renal disease Status: Chronic Current Visit: Yes (2) Anemia Status: Chronic Current Visit: Yes (3) Hypertension Status: Chronic Current Visit: Yes Qualifiers: Hypertension type: essential hypertension Qualified Code(s): I10 - Essential (primary) hypertension (4) Diabetes mellitus Status: Chronic Current Visit: Yes Qualifiers: Diabetes mellitus type: other specified (including LUCIO) Chronic kidney disease stage: on chronic dialysis
[2017-01-20] MEDS: INSULIN GLARGINE 100 UNIT/ML SUBCUT SCH (21:59)
[2017-01-20] MEDS: SERTRALINE 50 MG TABLET PO SCH (21:59)
[2017-01-21] MEDS: SODIUM CHLORIDE 0.9% 250 ML IV SCH (06:14)
[2017-01-21] MEDS: DEXTROSE 5% NACL 0.45% 1,000 ML IV SCH (06:14)
[2017-01-21 06:30] LABS: Calcium 8.3 MG/DL (8.5-10.1); Osmolality,Calculated 289.4 MOS/KG (273-304); Potassium 3.8 MMOL/L (3.5-5.1)
[2017-01-21] MEDS: CARVEDILOL 3.125 MG TABLET PO SCH (09:22)
[2017-01-21] MEDS: ISOSORBIDE DINITRATE 20 MG TABLET PO SCH ×2 (09:22→15:18)
[2017-01-21] MEDS: hydrALAZINE 25 MG TABLET PO SCH ×2 (09:22→15:19)
[2017-01-21] MEDS: FERROUS SULFATE 300 MG/5 ML UDCUP PO SCH (09:23)
[2017-01-21] MEDS: PANTOPRAZOLE 40 MG TABLET PO SCH (09:23)
[2017-01-21] MEDS: ONDANSETRON 4 MG TABLET PO SCH (09:23)
[2017-01-21] MEDS: INSULIN REGULAR 100 UNIT/ML SUBCUT SCH ×3 (09:23→17:06)
[2017-01-21] MEDS ORDERED: LIDOCAINE 1% 5 ML VIAL ONE (11:07)
[2017-01-21] MEDS ORDERED: PROPOFOL 200 MG/20 ML VIAL IV ONE (11:07)
--- NOTE | 2017-01-21 11:11 | History and Physical Update ---
History and Physical Update - Physical Exam Mental Status: other (Awake but noncommunicative) Heart: regular rate and rhythm Lung: clear to auscultation Abdomen: within normal limits Vitals: within normal limits
--- NOTE | 2017-01-21 11:18 | Operative Note ---
Date of procedure: 01/21/17 Pre-op diagnosis: Possible melena Procedure: EGD 66-year-old female with end-stage renal disease on hemodialysis with dark stool suspicious for melena and anemia now for upper endoscopy to further evaluate. Informed consent had to be obtained from the patient's family she can provide no intelligible history. Patient was sedated with MAC anesthesia per anesthesia protocol. Patient placed in left lateral decubitus position the Olympus flexible video upper endoscope was inserted into the oral cavity under direct vision the esophagus was intubated. Findings: Esophagus-normal proximal mid esophageal mucosa distal esophagus normal no significant esophagitis no stricture no varices are identified. Stomach-normal insufflation no blood present in the stomach. PEG tube is in position. On the lesser curvature there is a polypoid lesion with a tightly adherent Endo Clip placed. I do not see any ulceration or visible vessels associated with this lesion and there is no active bleeding. As to why this was placed when this was placed where this was placed we are unknown. Pylorus-normal Duodenum-normal for the bulb duodenum to the third portion of duodenum. The procedure terminated placed our procedure well. Postop diagnosis: 1. PEG tube in place continue tube feedings 2. Clip placed in the stomach for unclear etiology we will see if family can provide any further details. No high risk of bleeding was observed. Continue PPI treatment. Continue to monitor H&H. 3. At this time I will not plan any further evaluation of her colon with possibility of recent endoscopy at another institution that we do not have records from at this time. Anesthesia: MAC Surgeon / Physician: Edgar Gracia Estimated blood loss: none Specimens: none sent Condition: stable Disposition: post procedure unit Results - Labs CBC & BMP: 01/19/17 08:26 01/21/17 05:29 Discharge Plan - Discharge Medications No Action Carvedilol [Coreg] 3.125 mg PO BID clonazePAM TAB [KlonoPIN] 0.5 mg PO Q8H PRN PRN Reason: Anxiety Acetaminophen Tab [Tylenol Tab] 1,000 mg PO Q4H PRN PRN Reason: Pain Esomeprazole Magnesium [Nexium] 40 mg PO DAILY Ferrous Sulfate 220 mg PO BID Isosorbide Dinitrate 20 mg PO TID Sertraline [Zoloft] 50 mg PO BEDTIME Atorvastatin [Lipitor] 10 mg PO BEDTIME Insulin Glargine [Lantus] 10 unit SUBCUT BEDTIME Furosemide Tab [Lasix Tab] 20 mg PO DAILY Albuterol/Ipratropium Neb [Duoneb] 3 ml RESP TX RT Q4H PRN PRN Reason: Shortness Of Breath hydrALAZINE TAB [Apresoline Tab] 25 mg PO TID Ondansetron Tab [Zofran Tab] 4 mg PO DAILY - Follow Up or Referral - Forms/Instructions
--- NOTE | 2017-01-21 11:27 | Anesthesia Post-Op ---
Anesthesia Post OP - Post Ansesthetic Evaluation Patient seen in post op: Yes Resp: within normal limits CV: within normal limits Mental: within normal limits Temp: within normal limits [id number]: within normal limits Nausea and Vomiting: within normal limits Pain: within normal limits
--- NOTE | 2017-01-21 14:48 | Nephrology Progress Note ---
Nephrology - PN: Subj Interval history: Patient is seen on hemodialysis, she is tolerating this well will continue her treatment unchanged Assessment/plan 1. End-stage renal disease-we are working on placement in a dialysis facility for the patient 2. Anemia-patient had upper endoscopy today this was unremarkable we will continue the proton pump inhibitor her anemia is likely related to chronic kidney disease and chronic illness 3. Dementia 4. Diabetes mellitus this is controlled 5. Volume overload-patient's to get 3 L off net today. Exam (PN)-Nephrology - Vital Signs Vital signs: Period Temp Pulse Resp BP Sys/Chung Pulse Ox Last 24 Hr 97.9 F-99.2 F 68-76 12-20 128-168/58-85 94-99 - Lab 01/19/17 08:26 01/21/17 05:29 Most recent lab results Calcium 8.3 MG/DL (8.5-10.1) L 01/21/17 05:29 Phosphorus 2.6 MG/DL (2.5-4.9) 01/17/17 06:00 Magnesium 3.2 MG/DL (1.8-2.4) H 01/17/17 06:00 Assessment and Plan (1) End stage renal disease Status: Chronic Assessment and plan: Patient has developed significantly increased creatinine greater than 6 mg/dL and also having problems with fluid retention, we will go ahead and start the patient on dialysis. I spoke to the patient's daughter about this and mentioned consideration towards not placing her mother on dialysis in light of her decreased mental capacity however she preferred to support the patient with dialysis at this time. Current Visit: Yes (2) Anemia Status: Chronic Assessment and plan: We will start the patient on EPO on dialysis and check iron stores, will also transfuse her 2 units packed red blood cells on her first dialysis session Current Visit: Yes (3) Hypertension Status: Chronic Current Visit: Yes Qualifiers: Hypertension type: essential hypertension Qualified Code(s): I10 - Essential (primary) hypertension (4) Diabetes mellitus Status: Chronic Assessment and plan: We will monitor with a sliding scale of insulin Current Visit: Yes Qualifiers: Diabetes mellitus type: other specified (including LUCIO) Chronic kidney disease stage: on chronic dialysis (5) Cerebrovascular disease Status: Acute Current Visit: Yes (6) Volume overload Status: Acute Assessment and plan: We will ultrafilter fluid off as tolerated by the patient Current Visit: Yes
--- NOTE | 2017-01-21 14:55 | Discharge Summary ---
Hospital Course - Hospital Course Hospital Course: Patient presented to my office on the day of admission, she had limited ability to communicate, she was noted to have a hematocrit of around 19%, she was also in some mild to moderate respiratory distress with rales and rhonchi and 2+ lower extremity edema. Her creatinine is also increased around 6-7 mg/dL. The patient was subsequently admitted for dialysis initiation. The patient underwent a catheter placement and was dialyzed on a daily basis for 4 days straight with vigorous fluid removal. With this therapy the patient's mentation and interactivity improved as well as her breathing status improving. At this time the patient's reached maximal hospital benefit and is to be discharged home. The patient will dialyze on a Saturday basis at 2 PM in the [place]. This first the patient's anemia goes and upper endoscopy was done which was unremarkable for any bleeding lesions. The patient did receive 2 units packed red blood cells and her hematocrit after this was up to around 31%. Diagnosis - Discharge Diagnosis (1) End stage renal disease Status: Chronic (2) Anemia Status: Chronic (3) Hypertension Status: Chronic (4) Diabetes mellitus Status: Chronic (5) Cerebrovascular disease Status: Acute (6) Volume overload Status: Acute Discharge Plan - Discharge Data Disposition: Disch/Xfer to Snf Condition at Discharge: Stable Discharge Diet: advance to your usual diet Activity: resume usual activities as tolerated - Discharge Medications New Epoetin Dane [Epogen] 8,000 unit IV .FOR DIALYSIS vial Continue Carvedilol [Coreg] 3.125 mg PO BID clonazePAM TAB [KlonoPIN] 0.5 mg PO Q8H PRN PRN Reason: Anxiety Acetaminophen Tab [Tylenol Tab] 1,000 mg PO Q4H PRN PRN Reason: Pain Esomeprazole Magnesium [Nexium] 40 mg PO DAILY Isosorbide Dinitrate 20 mg PO TID Sertraline [Zoloft] 50 mg PO BEDTIME Atorvastatin [Lipitor] 10 mg PO BEDTIME Insulin Glargine [Lantus] 10 unit SUBCUT BEDTIME Albuterol/Ipratropium Neb [Duoneb] 3 ml RESP TX RT Q4H PRN PRN Reason: Shortness Of Breath hydrALAZINE TAB [Apresoline Tab] 25 mg PO TID Changed Ondansetron Tab [Zofran Tab] 4 mg PO DAILY PRN #0 PRN Reason: Nausea Discontinued Ferrous Sulfate 220 mg PO BID Furosemide Tab [Lasix Tab] 20 mg PO DAILY - Follow Up or Referral - Forms/Instructions Additional Discharge Instructions: Patient to follow-up with hemodialysis as an outpatient on a Saturday basis at 2 PM in [place], [place] Exam - Constitutional Vitals: Period Temp Pulse Resp BP Sys/Chung Pulse Ox Last 24 Hr 97.9 F-99.2 F 68-76 12-20 128-168/58-85 94-99 Discharge Results Procedures and tests throughout hospitalization: Pending Orders 01/17/17 16:32 Occult Blood, Stool Routine 01/24/17 04:00 Basic Metabolic Panel MOTH Prealbumin MOTH Labs on day of discharge: Labs from last 24 hours 01/21/17 01/21/17 01/21/17 12:08 07:18 05:29 Sodium 140 Potassium 3.8 Chloride 104 Carbon Dioxide 27 Anion Gap 12.8 BUN 47 H Creatinine 3.20 H GFR Calculation 17 BUN/Creatinine Ratio 14.00 Glucose 89 POC Glucose 74 90 Calculated Osmolality 289.4 Calcium 8.3 L Prealbumin 15.0 L 01/20/17 01/20/17 01/20/17 23:43 21:10 16:26 Sodium Potassium Chloride Carbon Dioxide Anion Gap BUN Creatinine GFR Calculation BUN/Creatinine Ratio Glucose POC Glucose 155 H 59 L 75 Calculated Osmolality Calcium Prealbumin DS: Provider Date of admission: 01/15/17 12:23 Primary care physician: Andi Pan Attending physician on admission: Anthony Agustin MD Consults: 01/15/17 12:22 Consult to Physician [CONS] Routine Comment: Gen surgery for HD catheter today or tomorrow Consulting Provider: Jose Miller Person Notified: Coni Date Notified: 01/15/17 Time Notified: 12:53 01/15/17 12:25 Consult to Case Mgmt/Social Srvs [CONS] Routine Reason for Case Mgmt/Social Srvs: Dialysis 01/15/17 12:57 Consult to Dietitian [CONS] Routine Reason for Dietitian: Dietary Consult Other 01/16/17 08:44 Consult to Dietitian [CONS] Routine Reason for Dietitian: TF-Initiate/Manage Consult Comment: PT has a PEG. 01/17/17 08:47 Consult to Physician [CONS] Routine Comment[place] [facility] [place] Consulting Provider: Edgar Gracia Person Notified: aware Date Notified: 01/17/17 Time Notified: 10:48 Discharging clinician: Anthony Agustin MD
[2017-01-21 18:59] VITALS: BP 137/62
== END 2017-01-21 19:30 | DRG 951 ==
LOC: N.5E 11:53
PROVIDERS: ADMIT Internal Medicine Nephrology; ATTEND Internal Medicine Nephrology

== ENCOUNTER 2018-11-21 12:59 | Observation (INO) ==
[2018-11-21 15:00] LABS: Basophils % 0.3 % (0.0-0.8); Eosinophils # 0.1 10*3/uL (0.0-0.87); Eosinophils % 0.9 % (0.00-10.9); Hematocrit 42.1 VOL% (35.7-47.0); Hemoglobin 13.1 GM/DL (12.0-16.0); Immature Granulocytes % 0.4 %; Immature Granulocytes Absolute 0.05 #; Lymphocytes # 2.1 10*3/uL (1.4-4.0); Lymphocytes % 14.8 % (21.3-54.2); Mean Corpuscular HGB Conc 31.1 GM/DL (32-36); Mean Corpuscular Hemoglobin 28 PG (27-34); Mean Corpuscular Volume 90.3 FL (87-102); Mean Platelet Volume 10.2 FL (9.6-12.0); Monocytes # 0.8 10*3/uL (0.11-0.8); Monocytes % 5.9 % (1.7-12.7); Neutrophils # 10.7 10*3/uL (1.4-7.4); Neutrophils % 77.7 % (38.7-73.9); Platelet Count 347 T/CUMM (130-400); Red Blood Count 4.66 MC/CUMM (3.8-5.5); Red Cell Distribution Width 15.3 % (9.3-17.3); White Blood Count 13.8 T/CUMM (4-12)
[2018-11-21 15:47] LABS: Alanine Aminotransferase 45 U/L (13-56); Albumin 3.1 G/DL (3.4-5.0); Alkaline Phosphatase 252 U/L (45-117); Aspartate Amino Transferase 45 U/L (0-37); Bilirubin,Total < 0.39 MG/DL (0.2-1.0); Blood Urea Nitrogen 70 MG/DL (7-18); Calcium 9.8 MG/DL (8.5-10.1); Glucose 105 MG/DL (74-106); Osmolality,Calculated 277.1 MOS/KG (273-304); Potassium 3.4 MMOL/L (3.5-5.1); Sodium 128 MMOL/L (136-145)
[2018-11-21] MEDS ORDERED: ACETAMINOPHEN 325 MG TABLET PO PRN (16:29)
[2018-11-21] MEDS ORDERED: ONDANSETRON 4 MG/2 ML VIAL IV PRN (16:29)
[2018-11-22 04:57] LABS: Basophils % 0.2 % (0.0-0.8); Eosinophils # 0.1 10*3/uL (0.0-0.87); Eosinophils % 0.9 % (0.00-10.9); Hematocrit 39.1 VOL% (35.7-47.0); Hemoglobin 12.6 GM/DL (12.0-16.0); Immature Granulocytes % 0.3 %; Immature Granulocytes Absolute 0.04 #; Lymphocytes # 1.7 10*3/uL (1.4-4.0); Lymphocytes % 13.1 % (21.3-54.2); Mean Corpuscular HGB Conc 32.2 GM/DL (32-36); Mean Corpuscular Hemoglobin 29 PG (27-34); Mean Corpuscular Volume 89.3 FL (87-102); Mean Platelet Volume 10.9 FL (9.6-12.0); Monocytes # 0.6 10*3/uL (0.11-0.8); Monocytes % 4.8 % (1.7-12.7); Neutrophils # 10.6 10*3/uL (1.4-7.4); Neutrophils % 80.7 % (38.7-73.9); Platelet Count 338 T/CUMM (130-400); Red Blood Count 4.38 MC/CUMM (3.8-5.5); Red Cell Distribution Width 15.3 % (9.3-17.3); White Blood Count 13.1 T/CUMM (4-12)
[2018-11-22 05:26] LABS: Albumin 2.8 G/DL (3.4-5.0); Bilirubin,Total 0.6 MG/DL (0.2-1.0); Calcium 9.8 MG/DL (8.5-10.1); Osmolality,Calculated 283.7 MOS/KG (273-304); Potassium 3.5 MMOL/L (3.5-5.1); Total Protein 8.1 G/DL (6.4-8.3)
[2018-11-22] MEDS ORDERED: FAMOTIDINE 20 MG TABLET PO STA (08:13)
[2018-11-22] MEDS ORDERED: LIDOCAINE 1%/EPI INJ 20 ML VIAL ONE (08:39)
[2018-11-22] MEDS ORDERED: BUPIVACAINE 0.5% 50 ML VIAL ONE (08:39)
[2018-11-22] MEDS ORDERED: HEPARIN 5,000 UNIT/1 ML VIAL ONE (08:39)
[2018-11-22] MEDS ORDERED: PANTOPRAZOLE 40 MG TABLET PO SCH (09:00)
[2018-11-22] MEDS ORDERED: ceFAZolin 1,000 MG VIAL ONE (10:08)
[2018-11-22] MEDS ORDERED: fentaNYL 100 MCG/2 ML VIAL ONE (10:47)
[2018-11-22] MEDS ORDERED: PROPOFOL 200 MG/20 ML VIAL IV ONE (10:54)
[2018-11-22] MEDS ORDERED: GLYCOPYRROLATE 0.4 MG/2 ML VIAL ONE (10:55)
[2018-11-22] MEDS ORDERED: SODIUM CHLORIDE 0.9% 250 ML IV ONE (10:55)
[2018-11-22] MEDS ORDERED: ePHEDrine 50 MG/ML AMP ONE (10:55)
[2018-11-22] MEDS ORDERED: PHENYLEPHRINE 1 MG/10 ML SYRINGE IV ONE (10:55)
[2018-11-22] MEDS ORDERED: SUCCINYLCHOLINE 200 MG/10 ML VIAL ONE (10:55)
[2018-11-22] MEDS ORDERED: SEVOFLURANE 1 UNIT/15 MINUTE INH ONE (10:55)
[2018-11-22] MEDS ORDERED: HEPARIN 10,000 UNIT/10 ML VIAL IV PRN (11:52)
[2018-11-22 16:21] VITALS: BP 160/80
[2018-11-22 17:37] LABS: Hepatitis A Ab IgM Quant 0.18 Index; Hepatitis A Ab IgM Result Negative (Negative); Hepatitis B Core IgM Quant 0.32 Index; Hepatitis B Core IgM Result Negative (Negative); Hepatitis B Surface Ag Quant 0.94 Index; Hepatitis B Surface Ag Result Negative (Negative); Hepatitis C Virus Ab Quant 0.14 Index; Hepatitis C Virus Ab Result Negative (Negative)
== END 2018-11-22 16:50 ==
LOC: EDBD → EDUNIT# → N.ED 12:59 → N.EDINP 12:59 → N.2E 16:24
PROVIDERS: ADMIT Surgery; ATTEND Surgery